=== PATIENT | female | born 1970 | race Caucasian/White ===

== ENCOUNTER 2017-06-24 08:03 | Day surgery (SDC) | payer OTHER ==
[~2017-06-24] VITALS: Ht 160 cm; Wt 46.3 kg
--- NOTE | ~2017-06-24 | OP ---
PATIENT NAME: MINISTERIO ELAM MEDICAL RECORD: [id number] :68 LOCATION:[facility] ADMISSION DATE: SURGEON: IRON CH MD DATE OF OPERATION: 06/24/2017 PREOPERATIVE DIAGNOSES: 1. 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 2. Medial meniscus tear of the left knee. 3. Lateral meniscus tear of the left knee. POSTOPERATIVE DIAGNOSES: 1. 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 2. Medial meniscus tear of the left knee. 3. Lateral meniscus tear of the left knee. PROCEDURES: 1. Revision anterior cruciate ligament reconstruction, [id number] allograft. 2. Lateral meniscus root repair. 3. Medial meniscus, partial medial meniscectomy, and all done arthroscopically. SURGEON: Iron Ch MD ANESTHESIA: General. INTRAOPERATIVE COMPLICATIONS: None. 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 OPERATIVE SUMMARY IN DETAIL: After obtaining the appropriate preoperative orthopedic surgery consent as well as anesthetic consultation, evaluation, and clearance, the patient was brought to the operating room and placed on the operating table in supine position. After general laryngeal mask was administered, tourniquet placed on the proximal end of the left lower extremity. Left lower extremity was then prepped and draped in routine sterile fashion. Leg was exsanguinated. Tourniquet was inflated to 250 mmHg. Routine inferolateral portal was established followed by superomedial portal and inferomedial portal. Diagnostic arthroscopy did reveal the above findings. Attention was first turned to debriding the medial meniscus followed by debridement of the torn portions of the ACL graft that had been placed 2 years earlier, notchplasty was again performed and then the lateral meniscus was then evaluated. The lateral meniscus was saucerized as this was completely discoid with a posterior horn root tear. After saucerizing the lateral meniscus, the meniscal repair set from [employer] was utilized, 2 coreless FiberLoop sutures were passed through the posterior medial horn of the lateral meniscus and then pulled into and through the small tunnel created by the flip reverse cutting drill. These were then tied over the meniscal button. Having completed this, the ACL guide was then used to create the tibial tunnel and then the over the top guide was used to create the femoral tunnel with the 3.5 spade tip. Having completed this, an 11-mm tunnel was made in the tibia and an 11-mm tunnel was made in the femur distally. The omch-[id number]-ugyo allograft was then pulled through with a pull through strings into the sockets and the TightRope button was deployed on the lateral side of the cortex. Distal fixation was achieved with a 6.5 OPERATIVE REPORT [id number] MINISTERIO ELAMTY bicortical screw from [employer]. Having completed this, incision was closed with 2-0 Vicryl followed by 4-0 Prolene in both running and interrupted fashion. Sterile dressing was applied. The patient was awakened, taken to recovery room in stable condition. All final needle and sponge counts were correct. TRANSINT:[id number] Voice Confirmation ID: [id number] DOCUMENT ID: [id number] DIMA BELTRAN, IRON GODOY at 1612 CC: [id number] DICTATION DATE: 06/24/17 1318 INSTRUCTIONAL FACILITATOR: 06/24/[address] [facility] [address] [place] [id number]
[~2017-06-24 08:03] MED LIST: DEMEROL50 MG PO; EFFEXOR37.5 MG PO; EFFEXOR75 MG PO; PROMETRIUM200 MG PO; VIVELLE-DO.0375 MG/2 TD; ZOFRAN ODT4 MG/UDTAB PO
[2017-06-24 08:42] LABS: HEMATOCRIT 39.2 % (36.0-48.0); HEMOGLOBIN 13.6 g/dL (12-16); MCH 32.2 pg (26.0-34.0); MCHC 34.7 g/dL (31.0-37.0); MCV 92.9 fL (80.0-100.0); MEAN PLATELET VOLUME 9.1 fL (7.4-10.4); RBC 4.22 10x6/uL (4.00-5.40); RDW 11.5 % (11.5-14.5)
[2017-06-24 08:47] VITALS: BP 95/53; Ht 160 cm; Wt 46.3 kg
[2017-06-24] MEDS ORDERED: PERCOCET 10/3251 TA1 PO (13:13)
== END 2017-06-24 16:00 | disposition home or self-care (01) ==
LOC: D.OPS 08:03 → D.PAN 10:00 → D.OPS 11:15 → D.PAN 11:15 → D.OPS 16:00
PROVIDERS: Anesthesiology
DX: S83.512A Sprain of anterior cruciate ligament of left knee, initial encounter (principal); S83.282A Other tear of lateral meniscus, current injury, left knee, initial encounter; S83.242A Other tear of medial meniscus, current injury, left knee, initial encounter; M19.90 Unspecified osteoarthritis, unspecified site; Z01.812 Encounter for preprocedural laboratory examination

== ENCOUNTER → 2017-10-15 19:00 | Outpatient (CLI) | payer OTHER ==
[2017-06-24 08:47] VITALS: BMI 18.1
[~2017-10-15 19:00] MED LIST changes: +PERCOCET 10/3251 TA1 PO
== END | disposition home or self-care (01) ==
LOC: D.MAMMO 14:30
DX: Z12.31 Encounter for screening mammogram for malignant neoplasm of breast (principal)

== ENCOUNTER 2018-10-21 08:00 | Outpatient (CLI) | payer OTHER ==
[2017-06-24 08:47] VITALS: BMI 18.1
== END 2018-10-21 10:00 | disposition home or self-care (01) ==
LOC: D.MAMMO 08:00
PROVIDERS: ATTEND Obstetrics & Gynecology Gynecology
DX: Z12.31 Encounter for screening mammogram for malignant neoplasm of breast (principal)